=== PATIENT | male | born 1955 | race Caucasian/White ===

== ENCOUNTER 2024-10-25 11:45 | Outpatient (CLI) | payer OTHER | END 2024-10-25 11:46 | disposition home or self-care (01) | LOC: PET 11:45 | PROVIDERS: ATTEND Student in an Organized Health Care Education/Training Program | DX: R91.8 Other nonspecific abnormal finding of lung field (principal) | CPT/HCPCS: 78815; A9552 ==

== ENCOUNTER 2024-11-14 09:49 | Outpatient (CLI) | payer OTHER | END 2024-11-14 09:50 | disposition home or self-care (01) | LOC: LABBT 09:49 | PROVIDERS: ATTEND Student in an Organized Health Care Education/Training Program | DX: Z01.818 Encounter for other preprocedural examination (principal); R91.1 Solitary pulmonary nodule | CPT/HCPCS: 71046 ==

== ENCOUNTER 2024-11-14 10:00 | Inpatient (IN) | payer OTHER ==
[2024-11-14 10:14] VITALS: BMI 35.9
[2024-11-14 11:41] LABS: #Basophils 0.04 10x3/uL (0.0-0.2); %Basophils 0.6 % (0.0-1.0); %Eosinophils 4.4 % (0.0-10.0); %Lymphocytes 37.9 % (21.0-51.0); %Monocytes 6.6 % (0.0-10.0); %Neutrophils 50.2 % (42.0-75.0); Hematocrit 44.8 % (42.0-52.0); Hemoglobin 15.3 g/dL (14.0-18.0); Mean Corpuscular HGB CONC 34.2 g/dL (32.0-36.0); Mean Corpuscular Hemoglobin 30.8 pg (27.0-31.0); Mean Corpuscular Volume 90.1 fL (78.0-98.0); Mean Platelet Volume 9.4 fL (7.4-10.4); Platelet Count 175 10x3/uL (130-400); RBC Distribution Width 12.8 % (11.5-14.5); Red Blood Cell (RBC) Count 4.97 mill/uL (4.70-6.10)
[2024-11-14 12:07] LABS: Anion Gap 12 mmol/L (10-20); BUN (Urea Nitrogen) 12 mg/dL (8.4-25.7); Calc. Creatinine Clearance 0 mL/min (70-130); Calcium 9.1 mg/dL (7.8-10.44); Carbon Dioxide 24 mmol/L (23-31); Chloride 106 mmol/L (98-107); Estimated GFR 95; Glucose 126 mg/dL (80-115); Potassium 4.2 mmol/L (3.5-5.1); Sodium 138 mmol/L (136-145)
[2024-11-15] MEDS ORDERED: Bupivacaine 0.25% HCL 30 ML VIAL ONE ×2 (06:26→08:13)
[2024-11-15] MEDS ORDERED: EPINEPHrine 1 MG/ML VIAL ONE (06:26)
[2024-11-15] MEDS ORDERED: PROPOFOL 20 ML ONE (06:57)
[2024-11-15] MEDS ORDERED: Rocuronium Bromide 10 MG/ML (10ML VIAL) ONE ×2 (06:57→09:58)
[2024-11-15] MEDS ORDERED: fentaNYL PF 100 MCG/2 ML SYRINGE ONE (06:57)
[2024-11-15] MEDS ORDERED: Lidocaine 1% PF 5 ML VIAL ONE (06:57)
[2024-11-15] MEDS ORDERED: CEFAZOLIN 2 GM VIAL ONE (07:12)
[2024-11-15] MEDS ORDERED: ePHEDrine Sulfate 50 MG/10 ML VIAL ONE (08:06)
[2024-11-15] MEDS ORDERED: PHENYLEPHRINE-NS 100 MCG/ML 10 ML SYRINGE ONE (08:39)
[2024-11-15] MEDS ORDERED: Phenylephrine 40 MG/NS 250 ML 250 ML ONE (08:45)
[2024-11-15] MEDS ORDERED: Dexamethasone 4 mg/ml Vial ONE (08:49)
[2024-11-15] MEDS ORDERED: CEFAZOLIN 1 GM VIAL ONE (12:04)
[2024-11-15] MEDS ORDERED: SUGAMMADEX SODIUM 200 MG/2 ML VIAL ONE (12:21)
[2024-11-15] MEDS ORDERED: Ondansetron PF 4 MG/2 ML Vial ONE (12:21)
[2024-11-15] MEDS ORDERED: Promethazine HCl 25 MG/ML VIAL IM PRN ×2 (12:56→13:19)
[2024-11-15] MEDS ORDERED: Ondansetron HCl/PF 4 MG/2 ML Vial IVP PRN (12:56)
[2024-11-15] MEDS ORDERED: fentaNYL 50 mcg/mL 1 mL Vial ONE ×5 (13:08→17:22)
[2024-11-15] MEDS ORDERED: fentaNYL 50 mcg/mL 1 mL Vial SLOW IVP PRN (13:19)
[2024-11-15] MEDS ORDERED: Ondansetron PF 4 MG/2 ML Vial IVP PRN (13:19)
[2024-11-15] MEDS ORDERED: hydrALAZINE 20 MG/ML VIAL SLOW IVP PRN (13:19)
[2024-11-15] MEDS ORDERED: Ipratropium/Albuterol 3 ML NEB NEB PRN (13:19)
[2024-11-15 16:35] LABS: #Basophils Less than 0.03 10x3/uL (0.0-0.2); #Eosinophils Less than 0.03 10x3/uL (0.0-0.7); %Basophils 0.1 % (0.0-1.0); %Lymphocytes 4.2 % (21.0-51.0); %Monocytes 5.4 % (0.0-10.0); %Neutrophils 89.9 % (42.0-75.0); Hematocrit 44.3 % (42.0-52.0); Hemoglobin 15.2 g/dL (14.0-18.0); Mean Corpuscular HGB CONC 34.3 g/dL (32.0-36.0); Mean Corpuscular Hemoglobin 31.5 pg (27.0-31.0); Mean Corpuscular Volume 91.7 fL (78.0-98.0); Mean Platelet Volume 9.3 fL (7.4-10.4); Platelet Count 168 10x3/uL (130-400); Red Blood Cell (RBC) Count 4.83 mill/uL (4.70-6.10)
[2024-11-15 16:56] LABS: Anion Gap 15 mmol/L (10-20); BUN (Urea Nitrogen) 18 mg/dL (8.4-25.7); Calc. Creatinine Clearance 113 mL/min (70-130); Calcium 8.2 mg/dL (7.8-10.44); Carbon Dioxide 22 mmol/L (23-31); Chloride 105 mmol/L (98-107); Estimated GFR 80; Glucose 165 mg/dL (80-115); Sodium 137 mmol/L (136-145)
[2024-11-15] MEDS: Acetaminophen 325 MG TAB PO SCH (18:10)
[2024-11-15] MEDS: Ketorolac Tromethamine 30 MG (1 mL) VIAL IVP SCH (18:29)
[2024-11-15] MEDS: Gabapentin 300 MG CAP PO SCH (20:37)
[2024-11-15] MEDS: CEFAZOLIN 2 GM in Sodium Chloride 0.9% 100 ML IVPB SCH (20:38)
[2024-11-16] MEDS: Cyclobenzaprine 10 MG TAB PO PRN (00:08)
[2024-11-16] MEDS: Aspirin 81 mg Enteric Coated Tablet PO SCH (08:20)
[2024-11-16] MEDS: Lidocaine 4% Patch TD SCH (08:21)
[2024-11-16] MEDS: HYDROcodone/Acetaminophen 5/325 mg Tablet PO PRN (12:45)
[2024-11-17] MEDS: Transdermal Patch Removal TOP SCH (00:17)
[2024-11-17] MEDS: HYDROcodone/Acetaminophen 5/325 mg Tablet PO PRN (09:18)
[2024-11-17] MEDS: Amlodipine 10 MG TAB PO SCH (10:43)
[2024-11-17] MEDS: Lisinopril 10 MG TAB PO SCH (10:44)
[2024-11-17] MEDS ORDERED: Albuterol 200 PUFF (6.7GM INHALER) INH PRN (12:03)
[2024-11-17] MEDS ORDERED: Albuterol 200 PUFF INH INH PRN (12:26)
[2024-11-17] MEDS: Mometasone 200 MCG/Formoterol 5 MCG 120 PUFF INHALER INH SCH (19:10)
[2024-11-18] MEDS: Amlodipine 10 MG TAB PO SCH (08:44)
[2024-11-18] MEDS: Lisinopril 10 MG TAB PO SCH (08:45)
[2024-11-18 13:35] VITALS: TEMP 98.1
[2024-11-19 08:05] VITALS: BP 118/64
[2024-11-23 11:50] LABS: Actual Bicarbonate (HCO3a) 24.8 mEq/L (22-28); Analyzer IN Cardio OR; Base Excess (BEa) -1.9 mEq/L (-2.0 to +3.0); CO2 Tension 49.3 mmHg (35.0-45.0); Calcium, Ionized (arterial) 1.09 mmol/L (1.12-1.30); Carboxyhemoglobin (COHb) 1.2 gm% (0.0-3.0); Hematocrit-ABG 46 % (42.0-52.0); Hemoglobin (Hb) 15.6 g/dL (14.0-18.0); O2 Tension (PaO2), arterial 156.3 mmHg (> 80.0); Puncture Site Arterial Line
== END 2024-11-19 11:08 | disposition home or self-care (01) | DRG 164 ==
LOC: EDSTATUS 10:00 → SURG A 11-15 05:52 → PCU 11-15 17:50
PROVIDERS: ADMIT Student in an Organized Health Care Education/Training Program; ATTEND Student in an Organized Health Care Education/Training Program
PROC: 0BTG4ZZ Resection of Left Upper Lung Lobe, Percutaneous Endoscopic Approach (ICD-10-PCS; principal; 2024-11-15)
PROC: 07T74ZZ Resection of Thorax Lymphatic, Percutaneous Endoscopic Approach (ICD-10-PCS; 2024-11-15)
PROC: 8E0W4CZ Robotic Assisted Procedure of Trunk Region, Percutaneous Endoscopic Approach (ICD-10-PCS; 2024-11-15)
PROC: 4A133R1 Monitoring of Arterial Saturation, Peripheral, Percutaneous Approach (ICD-10-PCS; 2024-11-15)
DX: C34.12 Malignant neoplasm of upper lobe, left bronchus or lung (principal); J93.82 Other air leak; I10 Essential (primary) hypertension; E78.5 Hyperlipidemia, unspecified; E66.9 Obesity, unspecified; R73.03 Prediabetes; J44.9 Chronic obstructive pulmonary disease, unspecified; E55.9 Vitamin D deficiency, unspecified; Z68.35 Body mass index [BMI] 35.0-35.9, adult
CPT/HCPCS: 36415; 36416; 71045; 80048; 82805; 85025; 86850; 86900; 86901; 88305; 88307; 88309; 88331; 88332; 88341; 88342; A4314; C1713; C1776; C2613; J0171; J0665; J0690; J1100; J1885; J2405; J2704; J3010; S2900

== ENCOUNTER 2024-11-28 14:09 | Outpatient (CLI) | payer OTHER | END 2024-11-28 14:10 | disposition home or self-care (01) | LOC: RAD 14:09 | PROVIDERS: ATTEND Student in an Organized Health Care Education/Training Program | DX: R91.1 Solitary pulmonary nodule (principal) | CPT/HCPCS: 71046 ==

== ENCOUNTER → 2024-12-30 | Day surgery (SDC) | payer OTHER ==
[2024-12-29 11:49] VITALS: BMI 34.8
[~2024-12-30] MED LIST: Bupivacaine PF 0.5% 30 ML VIAL ONE; CEFAZOLIN 2 GM VIAL ONE; Dexamethasone 20 MG/5 ML VIAL ONE; EPINEPHrine 1 MG/ML VIAL ONE; Heparin 10,000 UNITS/ 10 ML VIAL ONE; Lidocaine 1% PF 5 ML VIAL ONE; Ondansetron PF 4 MG/2 ML Vial ONE; PROPOFOL 20 ML ONE; SUCCINYLCHOLINE/SOD CL,ISO/PF 200 MG/10 ML SYRINGE FS ONE; ePHEDrine Sulfate 50 MG/10 ML VIAL ONE; fentaNYL PF 100 MCG/2 ML SYRINGE ONE
[2024-12-30 07:46] LABS: Anion Gap 13 mmol/L (10-20); BUN (Urea Nitrogen) 24 mg/dL (8.4-25.7); Calc. Creatinine Clearance 122 mL/min (70-130); Calcium 8.8 mg/dL (7.8-10.44); Carbon Dioxide 25 mmol/L (23-31); Chloride 107 mmol/L (98-107); Estimated GFR 90; Glucose 124 mg/dL (80-115); Potassium 3.9 mmol/L (3.5-5.1); Sodium 141 mmol/L (136-145)
== END ==
LOC: SDC 05:55
PROVIDERS: ATTEND Student in an Organized Health Care Education/Training Program
PROC: 0JH60WZ Insertion of Totally Implantable Vascular Access Device into Chest Subcutaneous Tissue and Fascia, Open Approach (ICD-10-PCS; principal; 2024-12-30)
DX: C34.12 Malignant neoplasm of upper lobe, left bronchus or lung (principal); I10 Essential (primary) hypertension; E78.5 Hyperlipidemia, unspecified; E55.9 Vitamin D deficiency, unspecified; E66.9 Obesity, unspecified; K21.9 Gastro-esophageal reflux disease without esophagitis; K58.9 Irritable bowel syndrome, unspecified; G47.30 Sleep apnea, unspecified; N40.0 Benign prostatic hyperplasia without lower urinary tract symptoms; R73.03 Prediabetes; Z87.891 Personal history of nicotine dependence; Z68.34 Body mass index [BMI] 34.0-34.9, adult; Z79.51 Long term (current) use of inhaled steroids; Z79.82 Long term (current) use of aspirin; Z79.899 Other long term (current) drug therapy
CPT/HCPCS: 71045; 80048; C1788; J0171; J0665; J1100; J1642; J1644; J2405; J2704

== ENCOUNTER 2025-09-26 09:00 | Outpatient (CLI) | payer OTHER ==
[2025-09-26] MEDS ORDERED: Iopamidol 370 76% 100 ML VIAL ONE (11:19)
== END 2025-09-26 09:01 | disposition home or self-care (01) ==
LOC: CT 09:00
PROVIDERS: ATTEND Internal Medicine
DX: C34.12 Malignant neoplasm of upper lobe, left bronchus or lung (principal)
CPT/HCPCS: 71260; 74177